=== PATIENT | female | born 1995 | race Caucasian/White ===

== ENCOUNTER 2024-04-17 14:12 | Emergency (ER) | payer OTHER, SELFPAY ==
[2024-04-17 14:13] VITALS: BP 124/70; PULSE 84; RESP 16; TEMP 36.4; O2SAT 97
--- NOTE | 2024-04-17 15:28 | ED.GENADULT ---
HPI - General Adult General Chief complaint: Skin/Abscess/Foreign Body Stated complaint: cyst on tailbone Time Seen by Provider: 04/17/24 14:30 History of Present Illness HPI narrative: Patient is a 28-year-old female who department this afternoon complaining of a pilonidal cyst/abscess in her tailbone region. Patient admits that she does have hidradenitis suppurative which usually causes her to develop these cysts in her inguinal or but this is the 1st time that she has had it in her tailbone region. Patient states that the pain started on Sunday and has been progressively getting worse. This is limiting the patient to even sit down due to the pain. Patient denies any additional symptoms or concerns at this time. Related Data Allergies Allergy/AdvReac Type Severity Reaction Status Date / Time No Known Allergies Allergy Verified 04/17/24 14:13 Review of Systems Review of Systems: All systems are reviewed and are negative unless stated otherwise in the HPI. Exam Narrative: General: Alert, awake, afebrile, in no acute distress. HEENT: PERRL, no rhinorrhea, no post nasal drip, oropharynx clear. Cardiovascular: Regular rate and rhythm, no murmurs, rubs or gallops, no peripheral edema. Respiratory: Clear to auscultation bilaterally, no tachypnea, no wheezing, no rhonchi, no rubs, no respiratory distress. Abdomen: Soft, nontender, nondistended, no rebound, no guarding, no peritoneal signs. Rectal: Exam performed with the presence of female nurse account developer Orly revealing pilonidal cyst overlying patient's tailbone with surrounding erythema and induration, ultrasound used which revealed cobblestoning and a pocket of fluid. Musculoskeletal: No joint swelling or deformity, normal muscle tone. Skin: No rashes or petechia, no signs of infection. Neurological: Alert and oriented to person, place, and time. Follows all commands. No focal deficits, speech is clear and fluent. Course Vital Signs Vital signs: Vital Signs Temperature 97.6 F 04/17/24 14:13 Pulse Rate 84 04/17/24 14:13 Respiratory Rate 16 04/17/24 14:13 Blood Pressure 124/70 04/17/24 14:13 Pulse Oximetry 97 04/17/24 14:13 Oxygen Delivery Room Air 04/17/24 14:13 Temperature 97.6 F 04/17/24 14:13 Pulse Rate 84 04/17/24 14:13 Respiratory Rate 16 04/17/24 14:13 Blood Pressure 124/70 04/17/24 14:13 Pulse Oximetry 97 04/17/24 14:13 Oxygen Delivery Room Air 04/17/24 14:13 Procedures Abscess I/D jamila-rectal: Date of Incision: 04/17/24 Time of Incision: 15:48 Sedation/analgesia: none Local Anesthetic: lidocaine 1% Amount of anesthesia used (mL): 3 Technique: incised with #11 blade Amount of fluid expressed (mL): 20 Irrigation: No Packing used?: none I&D Results: Pus and Blood Medical Decision Making MDM Narrative Medical decision making narrative: The patient was evaluated by myself in the emergency department. History is obtained from patient who is an independent historian and physical exam was performed. External medical records were reviewed at this time. I and D was performed at this time as detailed under procedural note. Patient was administered 2 tablets of Bactrim DS in the emergency department. Differential diagnosis considerations include pilonidal cyst, cellulitis and abscess. Comorbidities impacting this visit include history of hidradenitis suppurative. I have evaluated and discussed social determinants of health with the patient that could potentially impact subsequent diagnosis and treatment plans. On repeat assessment of the patient, reevaluation revealed that the patient is doing well and is in no acute distress. Patient symptoms have improved since she arrived to our emergency department. Repeat vital signs were all reviewed and noted to be stable. Differential diagnosis and treatment plan were discussed with the patient at bedside
[2024-04-17] MEDS: SULFAMETHOXAZOLE/TRIMETHOPRIM 800/160 MG DS TABLET 2 TAB PO (15:42)
[2024-04-17 15:46] VITALS: BP 124/77; PULSE 82; RESP 15; TEMP 36.7; O2SAT 100
== END 2024-04-17 15:45 | disposition home or self-care (01) ==
PROVIDERS: Emergency Provider Emergency Medicine; PCP Nurse Practitioner Family
DX: L05.01 Pilonidal cyst with abscess (principal)
CPT/HCPCS: 10080; 99283; A9270